=== PATIENT | male | born 1945 | race Caucasian/White ===

== ENCOUNTER 2016-08-30 11:50 | Observation (INO) | payer OTHER ==
[2016-08-30 12:05] LABS: % IMMATURE GRANULYOCYTES 0.2 % (0.0-1.1); ABSOLUTE IMMATURE GRANULOCYTES 0.03 10^3/uL (0.00-0.10); ADD DIFF? NO; ADD MORPH? NO; ADD SCAN? NO; ATYPICAL LYMPHOCYTE FLAG 0 (0-99); FRAGMENT RBC FLAG 0 (0-99); HEMOGLOBIN 15.7 g/dL (13.7-17.5); LEFT SHIFT FLG 0 (0-99); LIPEMIA HEMOLYSIS FLAG 80 (0-99); MEAN CELL HEMOGLOBIN 29.8 pg (27.9-34.1); MEAN CELL HEMOGLOBIN CONCENTR. 32.7 g/dL (32.4-36.7); MEAN CELL VOLUME 91.1 fL (81.5-99.8); MEAN PLATELET VOLUME 10.5 fL (8.7-11.7); PLATELET CLUMPS FLAG 0 (0-99); PLATELET COUNT 260 10^3/uL (150-400); RED BLOOD CELL COUNT 5.27 10^6/uL (4.40-6.38); RED CELL DISTRIBUTION WIDTH 15.3 % (11.5-15.2)
--- NOTE | 2016-08-30 12:05 | EDPHY ---
H & P Time Seen by Provider: 08/30/16 11:58 HPI/ROS: CHIEF COMPLAINT: Loss of consciousness, confusion Limitations: Confusion HISTORY OF PRESENT ILLNESS: 71-year-old male with a history of atrial fibrillation on Coumadin presents after an episode of loss of consciousness with confusion. He was at the gym and was found down on the floor in the locker room. He was unresponsive for approximately 5 minutes. No witnessed seizure activity. When he awoke, he was quite confused and combative. He was given Versed IM prior to arrival by EMS. He is now somewhat calmer. He recalls feeling dizzy while he was in the locker room, but is unable to provide any other clinical history. He denies chest pain, shortness of breath, headache , neck pain. REVIEW OF SYSTEMS: Constitutional: No fever, no chills Eyes: No visual changes ENT: No sore throat Respiratory: No cough, no shortness of breath Cardiac: No chest pain Gastrointestinal: no vomiting, no abdominal pain Genitourinary: no dysuria Musculoskeletal: No leg pain or swelling Skin: No rash Neurological: No headache Psychiatric: Feels anxious Past Medical/Surgical History: Atrial fibrillation Social History: single, has a girlfriend Smoking Status: Never smoked Physical Exam: General Appearance: Alert, confused, agitated Eyes: Pupils equal and round, 2 mm, no conjunctival pallor or injection ENT, Mouth: Mucous membranes moist Neck: Normal inspection, no midline tenderness, range of motion without pain Respiratory: no chest wall tenderness, Lungs are clear to auscultation anteriorly Cardiovascular: irregularly irregular rate and rhythm Gastrointestinal: Abdomen is soft and nontender Neurological: alert, oriented to self, diffuse weakness, unable to hold any of his extremities up against gravity, no localized weakness Skin: Warm and dry, no rashinspection Psychiatric: agitated Constitutional: Initial Vital Signs Heart Rate 101 H 08/30/16 11:50 Respiratory Rate 20 08/30/16 11:50 Blood Pressure 122/70 H 08/30/16 11:50 O2 Sat (%) 92 08/30/16 11:50 O2 Delivery Mode Nasal Cannula O2 (L/minute) 2 Allergies/Adverse Reactions: No Known Allergies Allergy (Unverified 08/04/10 15:40) Home Medications: Medication Instructions Recorded Digoxin [Lanoxin 0.25 mg] 0.25 mg PO DAILY 04/09/14 Sterling-3 Fatty Acids [Fish Oil 1000 1,000 mg PO DAILY 04/09/14 mg (*)] EPINEPHrine [Epipen 0.3 MG] 0.3 mg IM ONCE #2 syr 04/10/14 Aspirin [Aspirin 81mg (*)] 81 mg PO HS 08/30/16 Atorvastatin Calcium [Lipitor 40 40 mg PO DAILY 08/30/16 mg (*)] Clopidogrel Bisulfate [Plavix (*)] 75 mg PO HS 08/30/16 Diltiazem HCl [Diltiazem 24Hr Cd] 240 mg PO DAILY 08/30/16 levETIRAcetam [Keppra 500 mg (*)] 500 mg PO BID #60 tab 08/31/16 Medical Decision Making - Diagnostics EKG Interpretation: EKG interpreted by me reveals atrial fibrillation, ventricular rate 102, poor R- wave progression, slight ST depression in V5 and V6. Imaging: CT scan of the brain read by Dr. Matos reveals an old left frontal infarct and atrophy, otherwise normal. ED Course/Re-evaluation: 1:20 p.m.-patient is now recalling more the events of the morning. He woke up and felt fine. He went to the gym prior to eating lunch. He exercised on the treadmill for 30 minutes and then began to feel somewhat confused and dizzy. He ate a candy bar and then does not remember what happened next. No prior history of seizures. No chest pain or shortness of breath. This patient's mental status clinically cleared during his emergency department stay. The clinical scenario is consistent with new onset of seizures, with unresponsiveness followed by combativeness and a bicarb of 13. However I cannot rule out acute coronary syndrome or dysrhythmia. CT scan reveals no evidence of intracranial hemorrhage or acute stroke. NIH stroke score is 0. Will be admitted for observation on telemetry. Hospitalist service was consulted for admission. Differential Diagnosis: Differential diagnosis includes does not limited to new onset seizure, acute coronary syndrome, intracranial hemorrhage, dysrhythmia, hypoglycemia. - Data Points Laboratory Results: Laboratory Results 08/30/16 11:54 08/30/16 11:54 Medications Given: Discontinued Medications Acetaminophen (Tylenol) 1,000 mg PO Q6 PRN PRN Reason: Pain, Mild/Fever, Can Take PO Stop: 02/26/17 21:29 Last Admin: 08/30/16 22:49 Dose: 1,000 mg Aspirin (Aspirin) 81 mg PO HS GLORIA Stop: 02/26/17 20:59 Last Admin: 08/30/16 21:19 Dose: 81 mg Atorvastatin Calcium (Lipitor) 40 mg PO DAILY GLORIA Stop: 02/26/17 20:59 Last Admin: 08/31/16 08:13 Dose: 40 mg Clopidogrel Bisulfate (Plavix) 75 mg PO HS GLORIA Stop: 02/26/17 20:59 Last Admin: 08/30/16 21:19 Dose: 75 mg Digoxin (Lanoxin) 250 mcg PO DAILY GLORIA Stop: 02/27/17 08:59 Last Admin: 08/31/16 08:13 Dose: 250 mcg Diltiazem HCl (Dilacor Xr) 240 mg PO DAILY GLORIA Stop: 02/27/17 08:59 Last Admin: 08/31/16 08:14 Dose: 240 mg Xpteb-6-Horu Ethyl Esters (Fish Oil) 1,000 mg PO DAILY GLORIA Stop: 02/27/17 08:59 Last Admin: 08/31/16 08:15 Dose: 1,000 mg Departure - Departure Disposition: [facility] Acute Clinical Impression: Seizure Condition: Fair
--- NOTE | 2016-08-30 12:13 | CPEKG ---
Heart Rate: 102 RR Interval: 588 QRSD Interval: 80 QT Interval: 372 QTC Interval: 485 QRS Kila: -18 T Wave Kila: 63 EKG Severity - ABNORMAL ECG - EKG Impression: ATRIAL FIBRILLATION, V-RATE 78-135 EKG Impression: BORDERLINE LEFT AXIS DEVIATION EKG Impression: ANTERIOR INFARCT, OLD EKG Impression: BORDERLINE PROLONGED QT INTERVAL Electronically Signed By: [place] 30-Aug-2016 14:37:28
[2016-08-30 12:14] LABS: INR 1.11 (0.83-1.16); PROTIME(PATIENT) 14.2 SEC (12.0-15.0)
[2016-08-30 12:25] LABS: ANION GAP 27 mEq/L (8-16); CALCIUM 10.2 mg/dL (8.5-10.4); CARBON DIOXIDE 13 mEq/l (22-31); CHLORIDE 103 mEq/L (97-110); CREATININE 1.2 mg/dL (0.7-1.3); GLOMERULAR FILTRATION RATE 60; GLUCOSE 184 mg/dL (70-100); POTASSIUM 4.1 mEq/L (3.5-5.2); SODIUM 143 mEq/L (134-144)
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
[2016-08-30] MEDS ORDERED: ASPIRIN 81 MG CHEWABLE TAB PO SCH (21:00)
[2016-08-30] MEDS: CLOPIDOGREL BISULFATE 75 MG TAB PO SCH (21:19)
[2016-08-30] MEDS ORDERED: ACETAMINOPHEN 500 MG TAB PO PRN (21:30)
[2016-08-30] MEDS: ATORVASTATIN CALCIUM 40 MG TAB PO SCH (22:19)
[2016-08-31 05:29] LABS: ANION GAP 9 mEq/L (8-16); CALCIUM 8.8 mg/dL (8.5-10.4); CARBON DIOXIDE 23 mEq/l (22-31); CHLORIDE 107 mEq/L (97-110); CHOLESTEROL 124 mg/dL (140-220); CHOLESTEROL/HDL RATIO 1.63 RATIO (1.00-4.97); GLOMERULAR FILTRATION RATE > 60; GLUCOSE 79 mg/dL (70-100); HIGH DENSITY LIPOPROTEIN 76 mg/dL (40-65); LOW DENSITY LIPOPROTEIN 38 mg/dL (80-100); NON-HIGH DENSITY LIPOPROTEIN 48 mg/dL (90-129); POTASSIUM 3.6 mEq/L (3.5-5.2); SODIUM 139 mEq/L (134-144); TRIGLYCERIDE 54 mg/dL (40-150); VERY LOW DENSITY LIPOPROTEINS 10 mg/dL (8-25)
[2016-08-31] MEDS: ATORVASTATIN CALCIUM 40 MG TAB PO SCH (08:13)
[2016-08-31] MEDS ORDERED: DIGOXIN 250 MCG TAB PO SCH (09:00)
[2016-08-31] MEDS ORDERED: OMEGA-3 FATTY ACIDS 1,000 MG CAP PO SCH (09:00)
[2016-08-31] MEDS ORDERED: DILTIAZEM XR 240 MG CAP PO SCH (09:00)
--- NOTE | 2016-08-31 09:23 | PDCONSULT ---
Chemistry Professor Note: HOSPITAL NEUROLOGY CONSULT REQUESTING: Jj Burgos DO REASON: spell of loss of consciousness HPI: This is a 71-year-old right-handed gentleman with a history of atrial fibrillation and PTSD who presented to our emergency department yesterday due to a spell of loss of consciousness. History is provided by the patient. There is no eyewitness account to his loss of consciousness. Patient states that he went about his normal morning routine yesterday, though ate a assistant family teacher breakfast unusual. Late in the morning, he proceeded to his fitness club where he did about 30 minutes on the stair machine. He states he had intense workout and was feeling "a little funny" specifically feeling a bit lightheaded. He states he generally lifts weights after his cardio room team, but because of his lightheadedness he proceeded to end his workout went to the locker room. He states he was going to take a shower and felt like "something was wrong." He states he went to turn the shower on but he could not figure out which way to turn the knob to get the hot water running. He went back to his locker and he could not figure out the combination. He then abruptly lost consciousness. He is not sure how long he was down for, however, gym members found him on the ground unresponsive. He regained awareness and he states he immediately he started having a flashback to his days in the [place]. Some friends came to his side to reassure him and he states he felt better and did indeed recognize them. No indication of tongue bite or incontinence. EMS arrived and he was given intramuscular midazolam at which point the patient states he lost awareness again. He was brought to our Emergency Department where he was found to have screening laboratory abnormalities of leukocytosis and metabolic acidosis. A screening CT of the head without contrast revealed a chronic left posterior frontal cortically based infarct. Patient denied having any prodrome or focal neurologic deficit and he denied any chest pain, palpitations, shortness of breath, nausea , diaphoresis. He denies any history of symptomatic stroke/TIA. He has never had a seizure. He denies any epilepsy risk factors including traumatic brain injury, infantile/febrile seizure, intracranial instrumentation, UNDERGROUND ROOF BOLTER infection or collagen vascular disease. ROS: As per the HPI, otherwise a complete 12 point ROS was performed and is negative ALLERGIES AND MEDS: As recorded in the EMR - reviewed and reconciled PFSH: As per the intake H&P by Dr. Burgos from 08/30/16 EXAM: GEN: WDWN laying in NAD HEENT: NCAT, sclera anicteric, conjunctiva not injected, MMM, oropharynx clear, no scalp tenderness, no tongue laceration NECK: supple, nontender, no meningismus CV: RRR s1 s2 wo m/r/c/g. Carotid pulses 2+ wo bruit NEURO: MS: awake, alert, oriented to all spheres. Speech nondysarthric. No language disturbance. Follows commands. Attends to both sides. Recent/remote memory grossly intact. Mood euthymic. Good fund of knowledge. CN: pupils 3mm round and reactive. Fundi with sharp discs. VFF. Primary gaze centered. Full ocular motility. Facial sensation preserved. Face symmetric. Hearing grossly intact to finger rub. Palatoglossal movements intact. Shoulder shrug and head turn strong. MOTOR: normal bulk/tone. No adventitial movements. Full power throughout. SENSORY: intact to all modalities throughout. No extinction. COORD: no ataxia FN/HS. Rusty preserved. Romberg neg. REFLEX: plantars upgoing bilaterally. No clonus. DTRS 3-/4. GAIT: Deferred to PT safety evaluation DATA REVIEW: Labs reviewed in EMR PERSONALLY INTERPRETED RESULTS AND DATA: CT head without contrast from August 30, 2016 shows a cortical hypodensity in the left posterior frontal lobe, some mild generalized volume loss and hyperdensities reflective of calcific plaque and multiple intracranial vessels. Carotid Doppler shows mild and nonhemodynamically significant plaque in the carotid bulbs IMPRESSION AND RECOMMENDATIONS: // SPELL OF LOSS OF CONSCIOUSNESS // ATRIAL FIBRILLATION - NOT ON ANTICOAGULATION // CHRONIC SILENT CEREBRAL ISCHEMIC STROKE // PTSD Patient with a spell of abrupt onset loss of consciousness that was not witnessed. He did have a postictal state, though, the patient states he was aware of his surroundings but was having active flashback, which he experiences from time to time. It is difficult to say if his flashback was independent or a true postictal epileptiform phenomenon. His leukocytosis and metabolic acidosis could be potential epiphenomenon of convulsive activity, but this is nonspecific. He has a normal neurologic exam today, but, he does have an abnormal CT indicating a chronic cortically based infarction, which is consistent which his history of atrial fibrillation with risk of cardioembolism , and given the cortically based nature of this stroke that does seem culprit stroke mechanism. Given the cortical abnormality, he is at risk for seizure. It is possible that he also had a syncopal episode related to a primary cardiovascular problem. For now I think it would be best to approach his spell on both fronts. I would recommend starting antiseizure medication of levetiracetam 500 mg twice daily. He cannot have an MRI due to metal shrapnel in his leg. He was advised on seizure safety precautions such as not swimming/ tub bathing alone, not climbing heights, not operating heavy machinery and not performing any activities that could put himself or others in harm's way due to his spells. He was also advised against driving per [place] state Law 4. Ninety days from his event. With regards to his chronic cortically based infarct and history of atrial fibrillation, this would certainly warrant initiation of anticoagulation. I would also recommend further stroke optimization with goal of normotension, normoglycemia with A1c less than 6.5, LDL less than 70 with statin added as needed. Stroke education provided. I will see him in our clinic in 2 weeks, at which point we will arrange for an outpatient EEG. He will have cardiac investigation per the primary hospital team.
[2016-08-31 11:56] VITALS: BP 146/88; PULSE 85; RESP 16; TEMP 98.2; O2SAT 96
--- NOTE | 2016-08-31 13:07 | ECHO ---
[id number] + + [address] : : [place] [address] : : [phone] + + Adult Echocardiographic Report + ------+ :Name: JOSE KEYES SStudy Date: 08/30/2016 04:35 PM : : Hospital Admission Number: [id number] Locatio n: 203: :: 1945 Gender: Male Height: 69 in : :Age: 71 yrs Race: WH Weight: 165 lb : :Reason For Study: Eval for thrombus : : BSA: 1.9 meters 2 : :History: H/o Afib : + ------+ MMode/2D Measurements \T\ Calculations IVSd: 1.5 cm RVDd: 2.6 cm FS: 47.7 % LVOT diam: 2.0 cm LVPWd: 1.5 cm LVIDd: 4.2 cm EDV(Teich): LVOT area: LVIDs: 2.2 cm 77.3 ml 3.3 cm2 ESV(Teich): 15.9 ml EF(Teich): 79.5 % LVLd ap4: 5.6 cm SV(MOD-sp4): EDV(MOD-sp4): 41.0 ml 50.0 ml LVLs ap4: 4.9 cm ESV(MOD-sp4): 9.0 ml EF(MOD-sp4): 82.0 % Normal Measurement Values: + + :LVIDd (3.5-5.7cm) IVSd (0.6-1.1cm) LVPWd (0.6-1.1cm) Aortic Root (2.0-3.7cm)Left Atrium (1.5-4.0cm): :LV Vol(d) (76-115ml) LV Vol(s) (29-48ml) Ejec Fraction (50-65%)PV Jake (0.6- 1.2m/s) TV Jake (0.4-1.0m/s) : :MV E Jake (0.8-1.0m/s)MV A Jake (0.3-1.0m/s)LVOT Jake (0.7-1.2m/s) Asc Ao Jake ( 0.9-1.8m/s) : + + Doppler Measurements \T\ Calculations MV E max jake: MV V2 max: Ao mean PG: LV V1 mean P.6 cm/sec 86.3 cm/sec 3.1 mmHg 1.1 mmHg MV dec time: MV max PG: Ao V2 mean: LV V1 mean: 0.18 sec 3.0 mmHg 78.9 cm/sec 47.4 cm/sec MV V2 mean: Ao V2 VTI: 22.8 cm LV V1 VTI: 13.2 cm 48.9 cm/sec MELI(I,D): 1.9 cm2 MV mean P.1 mmHg MV V2 VTI: 19.0 cm MVA(VTI): 2.3 cm2 SV(LVOT): 42.9 ml PA V2 max: RAP systole: 95.4 cm/sec 10.0 mmHg PA max P.7 mmHg Left Ventricle The left ventricle is normal in size. There is no thrombus. There is moderate concentric left ventricular hypertrophy. Ejection Fraction = 70- 80%. The left ventricle is hyperdynamic. No regional wall motion abnormalities noted. Right Ventricle The right ventricle is normal in size and function. Atria The left atrium is severely dilated. The right atrium is moderate to severely dilated. The interatrial septum is intact with no evidence for an atrial septal defect. Mitral Valve The mitral valve is normal in structure and function. There is no mitral valve stenosis. There is trace to mild mitral regurgitation. Tricuspid Valve The tricuspid valve is normal in structure and function. There is no tricuspid stenosis. There is trace tricuspid regurgitation. Right ventricular systolic pressure is normal. Aortic Valve The aortic valve is normal in structure and function. There is no aortic stenosis. There is no aortic insufficiency. Pulmonic Valve The pulmonic valve is not well visualized. There is no pulmonic valvular stenosis. There is no pulmonic valvular regurgitation. Great Vessels The aortic root is normal size. Pericardium/Pleural There is a fat pad seen. Small pericardial effusion. Conclusion A complete two-dimensional transthoracic echocardiogram was performed (2D, M-mode, Doppler and color flow Doppler). The left ventricle is normal in size. There is moderate concentric left ventricular hypertrophy. Ejection Fraction >70%. The left ventricle is hyperdynamic. There are no wall motion abnormalities. The right ventricle is normal in size and function. The left atrium is severely dilated. The right atrium is moderate to severely dilated. Normal appearing valves. There is trace to mild mitral regurgitation. There is trace tricuspid regurgitation. Right ventricular systolic pressure is normal. Small pericardial effusion. Final Reading Physician: Kanwal Veloz signed on 08/31/2016 01:05 PM Ordering Physician: Jj Burgos Performed By: Shruthi Davila
--- NOTE | 2016-08-31 15:06 | GDS ---
DISCHARGE DIAGNOSES: 1. Syncope versus seizure. 2. Acute encephalopathy. 3. Permanent atrial fibrillation. 4. Chronic cortical infarct. CONSULTATIONS: Neurology. HPI: Patient is a 71-year-old male with history of atrial fibrillation and prior shrapnel injury to right femoral artery, presented to the ER after he was found unresponsive at the [employer] locker room. He remembers doing his usual 30 minute workout on the [employer] and then when he went back to locker room, he felt very confused and could not remember the combination to his locker. He denied any prodromal symptoms, such as chest pain, shortness of breath, palpitations, dizziness, or lightheadedness. Upon awakening, he was confused and combative. During initial evaluation here, he denied any confusion , numbness, or weakness. States that he was in his normal state of health prior to this. He did eat a very small breakfast that morning and had little to eat the night before. He was recently treated for an occluded right femoral artery at the [facility] [place]. HOSPITAL COURSE BY PROBLEM: 1. Acute encephalopathy/syncope:had a normal neurologic exam here. CT showed chronic cortically-based infarction, which would be consistent with a history of atrial fibrillation. Given this cortical abnormality, he is at risk for seizure. He was seen by Neurology. Could not undergo MRI given shrapnel in his leg. Start Keppra 500 mg b.i.d. He was advised safety seizure as to not swim or bathe alone, or driving for 90 days from this event. Follow up with Dr. Wong in 2 weeks for EEG. Given risk of stroke with atrial fibrillation, patient is recommended for anticoagulation however, patient declined. I had an extensive conversation with him and he understands the risk of not being on this medication. He would rather follow up with his PCP at the [facility] because he has had bleeding with Coumadin in the past. Echocardiogram shows normal LV function, no significant valvular disease. There is a small pericardial effusion. Blood pressure remained stable here. 2. Permanent atrial fibrillation, rate controlled: Continue diltiazem. Patient is currently off Coumadin with a recent femoral artery occlusion. Again , I advised him to restart this medication however, he declines at this time and will follow up with his PCP. 3. Right artery occlusion, secondary to prior shrapnel injury. [facility] Continue aspirin, Plavix, and statin. 4. Benign hypertension: Continue home medications. 5. History of cortical stroke: Patient's LDL is at goal. Continue statin. Follow up with Dr. Wong in 2 weeks. Again, he declined anticoagulation. Ricky for seizure prophylaxis. DISPOSITION: Patient is stable for discharge. FOLLOWUP: 1. His primary care physician at the [facility]. 2. Follow up with Dr. Wong in 2 weeks for EEG. /[id number]/MODL MTDD
== END 2016-08-31 15:55 | disposition home or self-care (01) ==
LOC: EDUNIT# → F2W 15:48
PROVIDERS: ADMIT Family Medicine; ATTEND Internal Medicine
DX: G93.40 Encephalopathy, unspecified (principal); I48.2 Chronic atrial fibrillation; I10 Essential (primary) hypertension; F43.10 Post-traumatic stress disorder, unspecified; Z86.73 Personal history of transient ischemic attack (TIA), and cerebral infarction without residual deficits; Z79.82 Long term (current) use of aspirin
CPT/HCPCS: 70450; 92523; 93005; 93306; 93880; G0378; 82947-QW

== ENCOUNTER → 2018-09-22 | Outpatient (CLI) | payer OTHER | LOC: FIMAGING 07:43 | PROVIDERS: ATTEND Orthopaedic Surgery | DX: M17.12 Unilateral primary osteoarthritis, left knee (principal) ==

== ENCOUNTER 2018-09-27 06:52 | Inpatient (IN) | payer OTHER ==
--- NOTE | 2018-09-27 06:19 | PDHPUP ---
History & Physical Update H&P update statement: This history and physical update is based on an assessment of the patient which was completed after admission or registration (within 24 hours), but prior to the surgery/procedure. H&P update: H&P reviewed & patient examined, no change in patient's condition since H&P completed
[~2018-09-27 06:52] MED LIST: ROPIVACAINE 0.2% 80 MG, EPINEPHrine 0.2 MG, KETOROLAC TROMETHAMINE 30 MG in SYRINGE 0 ML IU ONE; TRANEXAMIC ACID 3,000 MG in NS (SYRINGE) 50 ML IRR ONE
[2018-09-27] MEDS ORDERED: TRANEXAMIC ACID 3,000 MG/50 ML BAG IRR ONE (06:56)
[2018-09-27] MEDS ORDERED: FAMOTIDINE 20 MG TAB PO ONE (07:06)
[2018-09-27] MEDS ORDERED: ACETAMINOPHEN 325 MG TAB PO ONE (07:06)
[2018-09-27] MEDS ORDERED: DEXAMETHASONE 4 MG/ML VIAL IVP ONE (07:06)
[2018-09-27] MEDS ORDERED: ceFAZolin 2 GM/DEXTROSE 100 ML IV ONE (07:06)
[2018-09-27] MEDS ORDERED: LR 1,000 ML IV ONE (07:08)
[2018-09-27] MEDS ORDERED: MIDAZOLAM 2 MG/2 ML VIAL IVP ONE (08:56)
[2018-09-27] MEDS ORDERED: MIDAZOLAM 2 MG/2 ML VIAL ONE (08:56)
--- NOTE | 2018-09-27 08:58 | PDANEPAE ---
ANE Past Medical History - Cardiovascular History Hx Hypertension: No Hx Arrhythmias: Yes Hx Chest Pain: No Hx Coronary Artery / Peripheral Vascular Disease: No Hx CHF / Valvular Disease: No Hx Palpitations: No Cardiovascular History Comment: A-fib (dx 1994) - Pulmonary History Hx COPD: No Hx Asthma/Reactive Airway Disease: No Hx Recent Upper Respiratory Infection: No Hx Oxygen in Use at Home: No Hx Sleep Apnea: No Sleep Apnea Screening Result - Last Documented: Negative - Neurologic History Hx Cerebrovascular Accident: No Hx Seizures: No Hx Dementia: No - Endocrine History Hx Diabetes: No - Renal History Hx Renal Disorders: No - Liver History Hx Hepatic Disorders: No - Neurological & Psychiatric Hx Hx Neurological and Psychiatric Disorders: No - Cancer History Hx Cancer: No - Congenital Disorder History Hx Congenital Disorders: No - GI History Hx Gastrointestinal Disorders: No - Other Health History Other Health History: none - Chronic Pain History Chronic Pain: No - Surgical History Prior Surgeries: shrapnel removal and artery repair to right upper leg. right upper leg artery stent and replacement X 3 (last stent replacement 6 mos ago). right hip replacement ANE Review of Systems Review of Systems: - Exercise capacity METS (RN): 5 METS ANE Patient History - Allergies Allergies/Adverse Reactions: No Known Allergies Allergy (Verified 09/20/18 15:19) - Home Medications Home Medications: Clopidogrel Bisulfate [Plavix (*)] 75 mg PO HS 08/30/16 [Last Taken 09/21/18] Diltiazem HCl [Diltiazem 24Hr Cd] 240 mg PO DAILY 08/30/16 [Last Taken 09/21/18] Adult One Daily Multivit Tab 09/20/18 [Last Taken 09/21/18] Dabigatran Etexilate Mesyl [Pradaxa 150 MG (*)] 09/20/18 [Last Taken 09/21/18] Vitamin C 09/20/18 [Last Taken 09/21/18] - NPO status NPO Since - Liquids (Date): 09/26/18 NPO Since - Liquids (Time): 20:00 NPO Since - Solids (Date): 09/26/18 NPO Since - Solids (Time): 20:00 - Smoking Hx Smoking Status: Never smoked - Family Anes Hx Family Hx Anesthesia Complications: none ANE Labs/Vital Signs - Vital Signs Blood Pressure: 146/85 Heart Rate: 68 Respiratory Rate: 16 O2 Sat (%): 97 Height: 167.64 cm Weight: 72.575 kg ANE Physical Exam - Airway Mallampati Score: Class 2 - ASA Status ASA Status: III ANE Anesthesia Plan Anesthesia Plan: spinal Regional Anesthesia: adductor canal FNB
[2018-09-27] MEDS ORDERED: fentaNYL 100 MCG/2 ML INJ ONE (09:02)
[2018-09-27] MEDS ORDERED: PROPOFOL/EMULSION 500 MG/50 ML BOTTLE IV ONE (09:02)
[2018-09-27] MEDS ORDERED: BUPIVACAINE/DEXTROSE 7.5MG/ML 2 ML SPINAL AMP SP ONE (09:04)
[2018-09-27] MEDS ORDERED: TEMAZEPAM 15 MG CAP PO PRN (09:45)
[2018-09-27] MEDS ORDERED: ONDANSETRON 4 MG/2 ML VIAL IVP PRN ×2 (09:45→10:49)
[2018-09-27] MEDS ORDERED: MAGNESIUM HYDROXIDE 30 ML UDCUP PO PRN (09:45)
[2018-09-27] MEDS ORDERED: DIPHENOXYLATE/ATROPINE LOMOTIL 1 TAB PO PRN (09:45)
[2018-09-27] MEDS ORDERED: POLYETHYLENE GLYCOL 3350 17 GM PKT PO PRN (09:45)
[2018-09-27] MEDS ORDERED: PROMETHAZINE HCL 25 MG SUPPR PR PRN (09:45)
[2018-09-27] MEDS ORDERED: ONDANSETRON DISINTEGRATING 4 MG TAB PO PRN (09:45)
[2018-09-27] MEDS ORDERED: diphenhydrAMINE 25 MG CAP PO PRN (09:45)
[2018-09-27] MEDS ORDERED: LACTULOSE 20 GM/30 ML UDCUP PO PRN (09:45)
[2018-09-27] MEDS ORDERED: PROMETHAZINE HCL 25 MG/ML INJ IVP PRN ×2 (09:45→10:49)
[2018-09-27] MEDS ORDERED: CYCLOBENZAPRINE 10 MG TAB PO PRN (09:45)
[2018-09-27] MEDS ORDERED: METOCLOPRAMIDE 10 MG/2 ML VIAL IVP PRN (09:45)
[2018-09-27] MEDS ORDERED: BISACODYL 10 MG SUPP PR PRN (09:45)
[2018-09-27] MEDS ORDERED: LR 1,000 ML IV SCH (10:00)
--- NOTE | 2018-09-27 10:30 | POSTOPPROG ---
Post Op Note Date of Operation: 09/27/18 Surgeon: Adria Macedo [employer] Specialist: Gerda Loza PA-C Anesthesiologist: dr. poole Anesthesia: Spinal, Other (Specify) (adductor canal block) Pre-op Diagnosis: left knee OA Post-op Diagnosis: same Indication: left knee pain Procedure: L TKA robot assisted Findings: severe knee OA Inf/Abcess present in the surg proc area at time of surgery?: No EBL: 50-100
--- NOTE | 2018-09-27 10:40 | PDMN ---
Medical Necessity Medical necessity: Pt meets inpt criteria per MD order and [facility] S-700, Knee Arthroplasty, Total, A-2 days, 73 y/o w/primary OA of L knee underwent L total knee arthroplasty- robot assisted, AUTH# [id number] [place] [id number] DONE [facility]. PMHx includes arrhythmia- afib, pain control issues after previous surgeries, ASA status: III.
[2018-09-27] MEDS ORDERED: PHENYLEPHRINE HCL 100 MCG/ML SYR IVP PRN (10:49)
[2018-09-27] MEDS ORDERED: NALOXONE HCL 0.4 MG/ML INJ IVP PRN (10:49)
[2018-09-27] MEDS ORDERED: fentaNYL 100 MCG/2 ML INJ IVP PRN (10:49)
[2018-09-27] MEDS ORDERED: LR 500 ML IV PRN (10:49)
--- NOTE | 2018-09-27 10:50 | POSTANESTH ---
Post Anesthetic Evaluation Cardiovascular Status: Similar to Pre-Op Cond Respiratory Status: Normal, Stable Level of Consciousness/Mental Status: Can Participate in Eval Pain Control: Adequate, Prn Tx Ordered Nausea/Vomiting Control: Adequate, Prn Tx Ordered Complications Possibly Related to Anesthesia: None Noted
[2018-09-27] MEDS ORDERED: LORazepam 1 MG TAB PO ONE (12:30)
[2018-09-27] MEDS: ACETAMINOPHEN 325 MG TAB PO SCH ×2 (14:54→21:06)
[2018-09-27] MEDS: oxyCODONE IR 5 MG TAB PO PRN ×4 (15:23→22:02)
[2018-09-27] MEDS: ceFAZolin 2 GM/DEXTROSE 100 ML IV SCH (16:16)
[2018-09-27] MEDS: ASPIRIN 81 MG CHEWABLE TAB PO SCH (21:07)
[2018-09-27] MEDS: FAMOTIDINE 20 MG TAB PO SCH (21:07)
[2018-09-27] MEDS: SENNOSIDES/DOCUSATE SODIUM TAB PO SCH (21:07)
[2018-09-28] MEDS: ceFAZolin 2 GM/DEXTROSE 100 ML IV SCH (00:48)
--- NOTE | 2018-09-28 02:44 | GOP ---
[f rep st] OPERATIVE REPORT DATE OF OPERATION: 09/27/2018 SURGEON: Bismark Macedo MD ATTENDING PHYSICIAN: Gerda Loza PA-C ANESTHESIA: Spinal. PREOPERATIVE DIAGNOSIS: Left knee osteoarthritis. POSTOPERATIVE DIAGNOSIS: Left knee osteoarthritis. PROCEDURE PERFORMED: Left total knee arthroplasty with computer navigation, robotic assist. FINDINGS: ESTIMATED BLOOD LOSS: 30 cc. INDICATIONS: The patient is a 73-year-old male with severe and progressive pain and deformity of the left knee unresponsive to conservative care. The risks and benefits of surgical intervention were e xplained in detail. DESCRIPTION OF PROCEDURE: The patient was brought to the operative room and placed on the table in t he supine position. Spinal anesthesia was induced without difficulty. A pneumatic tourniquet was appl ied about the left proximal thigh, and the leg was prepped and draped in a sterile fashion. The leg h older was applied. After exsanguination by elevation the tourniquet was inflated to 265 mmHg. Incision was made anterior medial from the tibial tuberosity to a point 2 cm proximal to the superior pole of the patella. Medial parapatellar arthrotomy was carried out from the superior pole of the pa tella and posteriorly in line with the fibers of the Type II VMO. The medial collateral ligament was elevated and the infrapatellar fat pad was resected. The patella was everted and the articular surface was excised. A 38 mm patellar button was placed. A ttention was turned first to the distal aspect of the femur. After exposure of the femur, 2 half pin s were placed for fixation of the femoral array. In a similar fashion, 2 pins were placed anteromedi al on the tibia for fixation of the tibial array. External land marking and registration of the hip center was performed without difficulty. Internal femoral and tibial registration was carried out wi thout difficulty and the femoral and tibial checkpoints were placed and verified for accuracy. Attention was turned to the femur. The foot print for the size 5 femoral component was cut with the saw using the [employer] robotic system and verified for accuracy against the CT based plan. In a similar f ashion, the saw was used to cut the footprint for the size 6 tibial component using the [employer] system an d verified for accuracy against the CT based plan. The tibial articular surface was excised without d ifficulty, followed by the intercondylar box cut. The knee was extended and the remnants of the medial and lateral meniscus were excised. The posterior capsule was injected with ropivacaine, epinephrine and Toradol. A size 6 tibial tray was positioned . Trial reduction was then carried out. There was excellent range of motion, alignment, and stability using the 6 x 9 mm polyethylene. All trials were then removed. The joint was thoroughly irrigated and carefully dried. The prosthetic components were implanted. The permanent 6 x 9 mm polyethylene was placed without difficulty. The tourniquet was deflated and all bleeders were coagulated. The wound was thoroughly irrigated and closed using interrupted sutures of 2-0 Vicryl for the joint capsule. The subcu was closed with 3-0 V icryl and the skin with 4-0 Monocryl. Dermabond and Steri-Strips were applied followed by a compress jaci dressing. The patient was then moved from the operating room to the recovery room in good conditi on, having tolerated the procedure well. /[id number]/MODL
[2018-09-28] MEDS: ACETAMINOPHEN 325 MG TAB PO SCH ×4 (04:17→22:42)
[2018-09-28] MEDS: oxyCODONE IR 5 MG TAB PO PRN ×6 (06:19→22:42)
[2018-09-28] MEDS: DILTIAZEM CD 120 MG CAP PO SCH (08:08)
[2018-09-28] MEDS: FAMOTIDINE 20 MG TAB PO SCH ×2 (08:09→20:02)
[2018-09-28] MEDS: CLOPIDOGREL BISULFATE 75 MG TAB PO SCH (08:09)
[2018-09-28] MEDS: DABIGATRAN ETEXILATE MESYL 150 MG CAP PO SCH ×2 (08:09→20:03)
[2018-09-28] MEDS: SENNOSIDES/DOCUSATE SODIUM TAB PO SCH ×2 (08:09→20:02)
--- NOTE | 2018-09-28 09:25 | SOAPPROG ---
SOAP Progress Note Assessment/Plan: Assessment: Patient is doing well POD 1 s/p L TKA Pain management: pain is well controlled on oral pain med and adductor canal block is still in effect. encouraged patient to start oral narcotic pain meds even small dose before nerve block wears off later today. VTE ppx: recommend resuming blood thinners that patient was on prior to surgery , Patient is currently on aspirin, predaxa and plavix. cont TRINA and SCDs Anemia: level is expected initially postop. Asymptomatic. Continue to monitor D/c planning: Patient has done well. patient most likely will discharge to home tomorrow with support of girlfriend. Plan: 09/28/18 09:22 Subjective: francisca is doing well today, no pain, denies SOB, chest pain and N/v Objective: Vital Signs Temp Pulse Resp BP Pulse Ox 37.4 C 73 16 150/80 H 95 09/28/18 07:59 09/28/18 07:59 09/28/18 07:59 09/28/18 07:59 09/28/18 07:59 Laboratory Results 09/28/18 05:08 09/27/18 09/28/18 09/29/18 05:59 05:59 05:59 Intake Total 1394 600 Output Total 755 250 Balance 639 350 LLE: incision dressing is clean and dry, NVI, +pf/df ICD10 Worksheet Patient Problems: Problems Problem Status Onset Primary localized osteoarthritis of left knee Acute Seizure Acute
[2018-09-28] MEDS: ASPIRIN 81 MG CHEWABLE TAB PO SCH (20:03)
[2018-09-29] MEDS: ACETAMINOPHEN 325 MG TAB PO SCH ×2 (04:38→10:38)
[2018-09-29] MEDS: oxyCODONE IR 5 MG TAB PO PRN ×3 (04:38→13:25)
[2018-09-29 07:35] VITALS: BP 124/74
--- NOTE | 2018-09-29 08:24 | SOAPPROG ---
SOAP Progress Note Assessment/Plan: Assessment/Plan: Patient is doing well POD 2 s/p Left TKA robot assist. Pain management: pain is well controlled on oral pain medications. VTE ppx: Dr. Macedo has recommend resuming blood thinners that patient was on prior to surgery. Patient is currently on aspirin, Pradaxa and Plavix. He will continue with TRINA and SCDs while in the hospital, he will be discharged with TRINA. Anemia: level is expected initially postop. Asymptomatic. Continue to monitor D/c planning: Patient has done well. Patient most likely will discharge to home today with the support of his girlfriend. 09/29/18 08:20 09/29/18 08:30 09/29/18 08:32 09/29/18 08:33 Subjective: Patient states he is feeling much better today. Pain continues to improve and he is tolerating pain medication. He is planning on going home today. His girlfriend will be arriving at the hospital around 1:00 to observe PT prior to the patient being discharged home. He denies shortness of breath, chest pain, fever and chills. No major complaints or concerns at this time. Objective: Vital Signs Temp Pulse Resp BP Pulse Ox 37.1 C 94 16 124/74 H 94 09/29/18 07:34 09/29/18 07:34 09/29/18 07:34 09/29/18 07:34 09/29/18 07:34 Laboratory Results 09/29/18 04:42 09/28/18 09/29/18 09/30/18 05:59 05:59 05:59 Intake Total 1394 1350 Output Total 755 2800 Balance 639 -1450 Patient is resting comfortably in bed, no acute distress. LLE: Wound dressing is clean, dry and intact. No drainage. Calf is soft and nontender. He can actively dorsiflex and plantarflex foot and great toe against resistance. Grossly NVI distally. ICD10 Worksheet Patient Problems: Problems Problem Status Onset Primary localized osteoarthritis of left knee Acute Seizure Acute
[2018-09-29] MEDS: DABIGATRAN ETEXILATE MESYL 150 MG CAP PO SCH (08:29)
[2018-09-29] MEDS: DILTIAZEM CD 120 MG CAP PO SCH (08:29)
[2018-09-29] MEDS: FAMOTIDINE 20 MG TAB PO SCH (08:31)
[2018-09-29] MEDS: SENNOSIDES/DOCUSATE SODIUM TAB PO SCH (08:31)
[2018-09-29] MEDS: CLOPIDOGREL BISULFATE 75 MG TAB PO SCH (08:31)
--- NOTE | 2018-09-29 10:47 | ASMTLACE ---
ALEJOE Length of stay for Answers: 2 days current admission Acuity / Level of Answers: Yes Care: Did the patient have an inpatient admission? Comorbidities - select Answers: Other Notes: AFib all that apply # of Emergency department Answers: 0 visits in the last 6 months Score: 6 Date Signed: 09/29/2018 10:47 AM Electronically Signed By:Karla Sales
--- NOTE | 2018-09-29 10:49 | PDDCSUM ---
Discharge Summary Discharge Summary: Date of Admission: September 27, 2018 Date of Discharge: September 29, 2018 Principal diagnosis: Left knee DJD Principal procedure performed: Left total knee arthroplasty, robotic assist Brief history: Patient is a 73 yo white male who presented to the office with left knee pain/DJD. He had exhausted conservative management and wished to proceed with a left TKA, robotic assist. Hospital course: Patient was admitted on September 27, 2018 and the procedure was performed on that day. He tolerated the procedure well, was transferred to the recovery room and then to the orthopedic floor. During his hospital stay his neurovascular status, H&H, vital signs were monitored on a daily basis. He restarted his normal asprin, Pradaxa and Plavix for VTE prophylaxis. Patient also wore bilateral SCDs and TRINA hose for VTE prophylaxis. Patient participated in PT during hospital stay. On the day of discharge, September 29, 2018 patient states he is doing well. He denies shortness of breath, chest pain, fever, chill , nausea or vomiting. His most recent H&H is 12.4/37.6. He has stable vital signs and is afebrile. Patient will be discharged home with the support of his girlfriend. She will be arriving at the hospital this afternoon to observe PT prior to the patient's discharge. He has Tylenol, oxycodone, Celebrex for pain control. He will continue his normal medication aspirin, Pradaxa, Plavix for VTE prophylaxis. Patient has his follow up appointment with Dr. Macedo's office on October 19, 2018 at 9:30 am.
== END 2018-09-29 13:52 | disposition home or self-care (01) | DRG 470 ==
LOC: F3N 06:52
PROVIDERS: ADMIT Orthopaedic Surgery; ATTEND Orthopaedic Surgery
PROC: 8E0Y0CZ Robotic Assisted Procedure of Lower Extremity, Open Approach (ICD-10-PCS; principal; 2018-09-27 09:00)
PROC: 8E0YXBG Computer Assisted Procedure of Lower Extremity, With Computerized Tomography (ICD-10-PCS; principal; 2018-09-27 09:00)
PROC: 0SRD0JA Replacement of Left Knee Joint with Synthetic Substitute, Uncemented, Open Approach (ICD-10-PCS; principal; 2018-09-27 09:00)
DX: M17.12 Unilateral primary osteoarthritis, left knee (principal); I48.91 Unspecified atrial fibrillation; Z96.641 Presence of right artificial hip joint
CPT/HCPCS: 97110-GP; 97116-GP; 97161-GP; J0171; J0690; J1100; J1885; J2250; J2704; J2795; J3010